=== PATIENT | male | born 1980 | race Caucasian/White ===

== ENCOUNTER 2017-02-17 13:23 | Day surgery (SDC) | payer BC ==
[~2017-02-17] VITALS: Ht 167.6 cm; Wt 64.4 kg
[2017-02-17 13:58] VITALS: Ht 167.6 cm; Wt 64.4 kg
[2017-02-17 15:26] VITALS: BP 115/69; PULSE 67; RESP 18
[2017-02-17] MEDS ORDERED: PROPOFOL 40 ML ONE (16:13)
--- NOTE | 2017-02-17 17:06 | OPPN ---
Date/Time of Note Date/Time of Note DATE: 02/17/17 TIME: 16:51 Proc Note GI Procedure Date 02/17/17 Pre-procedure Diagnosis * Ulcerative colitis Post-procedure Diagnosis Impression: * Moderate proctitis to descending colon. Biopsied * Otherwise normal colon mucosa. Biopsied * Normal terminal ileum. Biopsied * Moderate size internal hemorrhoids Plan: * Continue mesalamine * If symptomatic and mesalamine enemas versus steroid enemas * Review pathology as soon as available . Procedure Performed: Other (Colonoscopy with biopsies. Ileoscopy with biopsies ) Surgeon FRANK MCCLURE MD Derrick Boat Captain none Anesthesia Type: MAC Anesthesiologist: CHELLE JOHNSON Tourniquet Time none EBL none Transfusion required none Biopsy 1: Terminal ileum Biopsy 2: Ascending colon Biopsy 3: Transverse colon Additional Biopsy: Ascending colon, sigmoid colon, rectum Grafts/Implants none Tubes/Drains none Complication(s) none Pt Condition post procedure: stable Disposition: home Indications: other (History of ulcerative colitis) Procedure Description After informed consent, with the patient/relatives understanding the procedure, its indications and potential risks and complications, including but not limited to: Allergic reaction, bleeding, perforation, infection, and after all pertinent questions were answered to the patient's satisfaction, the patient/ relatives signed the witnessed informed consent. Following this, premedication was administered slowly IV push under careful cardiovascular and respiratory monitoring with pulse [employer], automatic blood pressure, and irrigation laborer. Once the sedative effect was achieved, the patient was placed in the left lateral decubitus position, digital rectal examination was performed. The colonoscope was then introduced and advanced under visual control throughout all segments of the colon including: []the rectum, sigmoid, descending colon, splenic flexure, transverse colon, hepatic flexure, ascending colon and finally reaching the cecum which was clearly identified by transillumination, finger indentation and the ileocecal valve. Careful examination of the mucosa of the lower gastrointestinal tract both on insertion as well as withdrawal of the instrument disclosed the following findings: PREPARATION QUALITY: [Adequate], RECTAL EXAM: The anorectal area was visualized examined and digital rectal examination performed with the following findings: No evidence of perirectal disease, no masses. COLONIC MUCOSA: The mucosa of all segments of the colon was carefully examined and showed the following findings: There is moderate areas of erythema and edema and friability of the mucosa from the rectum to the distal sigmoid. The remainder of the the examined mucosa appears within normal limits. There is no evidence of inflammatory changes, diverticular formation, polyps or other neoplasms, vascular malformation, or any other abnormality. The terminal ileum was examined and appears within normal limits. Biopsies were obtained of the terminal ileum, ascending colon, transverse colon , descending colon, sigmoid and the rectum. The instrument was then withdrawn, the patient tolerated the procedure well and was transferred out of the Endoscopy Suite awake and in good condition to continue recovery under observation. Copies To: CC: FRANK MCCLURE MD, MORDO MD Feb 17, 2017 17:02
== END 2017-02-17 18:50 | disposition home or self-care (01) ==
LOC: GIL 13:23
PROVIDERS: ATTEND Internal Medicine Gastroenterology
DX: K51.90 Ulcerative colitis, unspecified, without complications (principal); K62.89 Other specified diseases of anus and rectum
CPT/HCPCS: 45380; 88305; Z7610